=== PATIENT | female | born 1935 | race Two or more races ===

== ENCOUNTER 2023-04-12 08:20 | Outpatient (RCR) | payer OTHER, SELFPAY | END 2023-06-18 11:53 | disposition home or self-care (01) | LOC: HO.WCC 08:20 | PROVIDERS: PCP Family Medicine; Referring Provider Family Medicine; Visit Provider Surgery | DX: C85.95 Non-Hodgkin lymphoma, unspecified, lymph nodes of inguinal region and lower limb (principal); C79.89 Secondary malignant neoplasm of other specified sites; G62.9 Polyneuropathy, unspecified; I10 Essential (primary) hypertension; Z92.3 Personal history of irradiation; Z92.21 Personal history of antineoplastic chemotherapy | CPT/HCPCS: 97602 ==